=== PATIENT | male | born 1985 | race Caucasian/White ===

== ENCOUNTER 2019-02-06 13:13 | Outpatient (CLI) ==
[2015-11-22 10:07] VITALS: BMI 25.0
--- NOTE | 2019-02-06 22:09 | MRI ---
EXAM: Lumbar spine MRI without contrast. HISTORY: Lumbar arthropathy. Left hip pain. COMPARISON: Lumbar spine MRI 11/18/2015. TECHNIQUE: Multiplanar, multisequence MR images were acquired of the lumbar spine without contrast. FINDINGS: Five non-rib bearing lumbar vertebra are present. Conus medullaris ends at T12-L1 and has normal morphology and signal intensity. Canal diameter is developmentally narrow. There is minor l ower lumbar dextroscoliosis centered at L4-5 and there is mild leftward curvature of the spine at the lumbosacral junction. There is mild disc space narrowing and disc desiccation at L4-5 and mild hypo plasia of the dorsal L5 vertebra and moderate disc space narrowing with disc desiccation at L5-S1. T here is a tiny chronic Schmorl's node along the L3 inferior endplate. The partially visualized liver, spleen and kidneys are unremarkable. There are no paravertebral mass es. L1-2: The intervertebral disc is normal. L2-3: The intervertebral disc is normal. L3-4: The intervertebral disc is normal. L4-5: There is a mild disc bulge and small central disc protrusion and annular tear that minimally e ffaces the ventral thecal sac. This has moderately improved compared to the 11/18/2015 MRI. In this patient with a developmentally narrow canal, there is no central canal stenosis. There is mild bila teral foraminal stenosis. L5-S1: There is a minor posterior disc bulge with endplate osteophytes and a small central/right par acentral disc extrusion and annular tear with proximal migration of the right paracentral component o f the herniated disc. This has moderately improved compared the previous MRI. There is mild taperin g of the thecal sac without stenosis. There is mild bilateral foraminal stenosis. IMPRESSION: 1. Moderately improved small central disc protrusion L4-5. 2. Moderately improved small central/right paracentral disc extrusion L5-S1.
== END 2019-02-06 13:14 | disposition home or self-care (01) ==
LOC: RAD 13:13
PROVIDERS: ATTEND Pain Medicine Interventional Pain Medicine
DX: M47.816 Spondylosis without myelopathy or radiculopathy, lumbar region (principal); M47.817 Spondylosis without myelopathy or radiculopathy, lumbosacral region; M51.36 Other intervertebral disc degeneration, lumbar region; M51.37 Other intervertebral disc degeneration, lumbosacral region